=== PATIENT | female | born 1990 | race African-American/Black ===

== ENCOUNTER 2021-06-22 22:21 | Emergency (ER) | payer SELFPAY ==
[~2021-06-22] VITALS: Ht 180.3 cm; Wt 148.0 kg
[2021-06-22] MEDS ORDERED: ONDANSETRON HCL 4MG/2ML INJ IV STA (22:30)
[2021-06-22] MEDS ORDERED: SODIUM CHLORIDE 0.9% 1,000 ML IV ONE (22:30)
[2021-06-22] MEDS ORDERED: MORPHINE SULFATE 4 MG/ML CPJ (NOT FOR IM USE) IV ONE (22:45)
[2021-06-22 22:59] LABS: BASOPHILS % 0.6 % (0.0-2.0); EOSINOPHILS % 0.1 % (0.0-5.0); HEMATOCRIT. 39.9 % (36.0-48.0); HEMOGLOBIN. 12.8 g/dL (12.0-16.0); LYMPHOCYTES % 14.9 % (20.0-50.0); MEAN CORPUSCULAR HEMOGLOBIN 24.1 pg (28.0-32.0); MEAN CORPUSCULAR VOLUME 75.2 fL (81.0-99.0); MEAN PLATELET VOLUME 8.6 fl (7.4-10.4); MONOCYTES % 1.9 % (2.0-8.0); NEUTROPHILS % 82.5 % (40.0-76.0); PLATELET 281 x1000/uL (130-400); RED BLOOD CELL COUNT 5.31 mill/uL (4.2-5.4); RED CELL DISTRIBUTION WIDTH 15.5 % (11.6-14.6)
[2021-06-22 23:14] LABS: HCG SCREEN NEGATIVE
[2021-06-22 23:52] LABS: CHLORIDE 114 mEq/L (98-107)
[2021-06-23] MEDS ORDERED: ONDANSETRON HCL 4MG/2ML INJ IV ONE (00:30)
[2021-06-23] MEDS ORDERED: MORPHINE SULFATE 4 MG/ML CPJ (NOT FOR IM USE) IV ONE (00:30)
[2021-06-23 00:35] LABS: CLARITY URINE CLEAR (CLEAR); COLOR URINE ORANGE (YELLOW); KETONES URINE 1+ (NEGATIVE); LEUKOCYTE ESTERASE URINE TRACE (NEGATIVE); NITRITE URINE NEGATIVE (NEGATIVE); OCCULT BLOOD URINE 3+ (NEGATIVE); PH URINE >=9.0 (4.5-8.0); PROTEIN URINE 1+ (NEGATIVE); SPECIFIC GRAVITY URINE 1.021 (1.005-1.030); UROBILINOGEN URINE 0.2 E.U./dL (0.2-1.0)
[2021-06-23] MEDS ORDERED: HALOPERIDOL LACTATE 5MG/ML VIAL IM NR (02:30)
[2021-06-23 02:38] LABS: CHLORIDE 109 mEq/L (98-107)
[2021-06-23] MEDS ORDERED: MAG-55 MT (03:44)
[2021-06-23 04:28] VITALS: BP 136/82
[2021-06-24] MEDS ORDERED: ONDA4TAB11 PO (02:24)
== END 2021-06-23 04:32 | disposition home or self-care (01) ==
LOC: ER 22:21
DX: K80.20 Calculus of gallbladder without cholecystitis without obstruction (principal); R11.10 Vomiting, unspecified; Z20.822 Contact with and (suspected) exposure to COVID-19; F12.10 Cannabis abuse, uncomplicated
CPT/HCPCS: 36415; 74176; 76705; 80048; 80053; 81003; 81025; 83690; 84703; 85025; 87426; 96361; 96372; 96374; 96375; 96376; 99285; J1630; J2270; J2405; J7030

== ENCOUNTER 2021-06-23 22:02 | Emergency (ER) | payer SELFPAY ==
[~2021-06-23] VITALS: Ht 175.3 cm; Wt 148.0 kg
[~2021-06-23 22:02] MED LIST: MAG-55 MT
[2021-06-23] MEDS ORDERED: ONDANSETRON HCL 4MG/2ML INJ IV STA (22:03)
[2021-06-23] MEDS ORDERED: MORPHINE SULFATE 4 MG/ML CPJ (NOT FOR IM USE) IV STA (22:03)
[2021-06-23] MEDS ORDERED: SODIUM CHLORIDE 0.9% 1,000 ML IV ONE (22:15)
[2021-06-23 22:56] LABS: BASOPHILS % 0.4 % (0.0-2.0); EOSINOPHILS % 0.2 % (0.0-5.0); HEMATOCRIT. 39.5 % (36.0-48.0); HEMOGLOBIN. 12.8 g/dL (12.0-16.0); LYMPHOCYTES % 27.3 % (20.0-50.0); MEAN CORPUSCULAR HEMOGLOBIN 24.1 pg (28.0-32.0); MEAN CORPUSCULAR VOLUME 74.7 fL (81.0-99.0); MEAN PLATELET VOLUME 8.9 fl (7.4-10.4); NEUTROPHILS % 66.1 % (40.0-76.0); PLATELET 276 x1000/uL (130-400); RED BLOOD CELL COUNT 5.29 mill/uL (4.2-5.4); RED CELL DISTRIBUTION WIDTH 15.7 % (11.6-14.6)
[2021-06-23 22:58] LABS: CHLORIDE 105 mEq/L (98-107)
[2021-06-23] MEDS ORDERED: METOCLOPRAMIDE HCL 10MG/2ML VIAL IV ONE (23:45)
[2021-06-23] MEDS ORDERED: KETOROLAC 30MG/ML VIAL IV ONE (23:45)
[2021-06-24] MEDS ORDERED: MORPHINE SULFATE 4 MG/ML CPJ (NOT FOR IM USE) IV ONE (00:30)
[2021-06-24] MEDS ORDERED: ONDANSETRON HCL 4MG/2ML INJ IV ONE (00:30)
[2021-06-24 00:43] VITALS: BP 220/122
[2021-06-24] MEDS ORDERED: HALOPERIDOL LACTATE 5MG/ML VIAL IM ONE (01:15)
[2021-06-24] MEDS ORDERED: DIPHENHYDRAMINE 50MG/ML VIAL IV ONE (01:15)
[2021-06-24] MEDS ORDERED: ONDA4TAB11 PO (02:24)
== END 2021-06-24 03:12 | disposition home or self-care (01) ==
LOC: ER 22:02
DX: F12.188 Cannabis abuse with other cannabis-induced disorder (principal); R10.11 Right upper quadrant pain; R11.10 Vomiting, unspecified; K80.80 Other cholelithiasis without obstruction; E66.01 Morbid (severe) obesity due to excess calories; Z68.42 Body mass index [BMI] 45.0-49.9, adult
CPT/HCPCS: 36415; 76705; 80053; 83690; 85025; 96361; 96372; 96374; 96375; 96376; 99284; J1200; J1630; J1885; J2270; J2405; J2765; J7030